=== PATIENT | female | born 1985 | race Caucasian/White ===

== ENCOUNTER 2019-06-11 18:44 | Inpatient (IN) | payer MEDICAID ==
[~2019-06-11] VITALS: Ht 165.1 cm; Wt 70.3 kg
--- NOTE | 2019-06-11 18:44 | NUR ---
Patient BIBA BLS accompanied by [place] [employer], transferred to bed 5. RN evaluating patient at bedside.
[2019-06-11 18:53] VITALS: BP 110/46
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
--- NOTE | 2019-06-11 19:09 | NUR ---
HOLD PROVIDED BY MICHAEL SPARKS, HOLD ON CHART
--- NOTE | 2019-06-11 19:18 | NUR ---
RECEIVED REPORT FROM PORFIRIO WARNER. TRANSFER OF CARE AT THIS TIME. PT SITTING QUIETLY IN BED 05 WITH SITTER AT BEDSIDE. PT IS TEARFUL, CALM, COOPERATIVE. SI PRECAUTIONS IMPLEMENTED.
--- NOTE | 2019-06-11 19:19 | NUR ---
DR. PASQUALE MEREDITH AT BEDSIDE.
--- NOTE | 2019-06-11 19:32 | NUR ---
REPORT GIVEN TO PORFIRIO VARGAS FOR CONTINUITY OF CARE
[2019-06-11] MEDS ORDERED: NACL 0.9% 1,000 ML IV ONE (19:35)
[2019-06-11] MEDS ORDERED: METOCLOPRAMIDE 10 MG/2 ML INJ VIAL IVP ONE (19:35)
--- NOTE | 2019-06-11 19:55 | NUR ---
MEDICATED WITH 10 MG IVP REGLAN FOR NAUSEA/VOMITING. WILL REASSESS.
--- NOTE | 2019-06-11 20:15 | NUR ---
REPORTS RELIEF FROM NAUSEA. REGLAN EFFECTIVE.
--- NOTE | 2019-06-11 20:30 | NUR ---
RESTING QUIETLY IN BED WITH EYES CLOSED. EASILY AROUSABLE TO VERBAL STIMULI. REPORTS RELIEF FROM NAUSEA. DENIES PAIN/DISCOMFORT AT THIS TIME.
[2019-06-11 20:49] LABS: BASOPHILS # (AUTO) 0.4 K/uL (0.00-0.22); BASOPHILS % (AUTO) 2.5 % (0.0-2.0); EOSINOPHILS # (AUTO) 0.1 K/uL (0-0.4); EOSINOPHILS % (AUTO) 0.6 % (0.0-4.0); HEMATOCRIT 42.7 % (36-48); HEMOGLOBIN 14.1 g/dL (12.0-16.0); LYMPHOCYTES # (AUTO) 1.7 K/uL (2.5-16.5); LYMPHOCYTES % (AUTO) 11.4 % (20.5-51.1); MEAN CORPUSCULAR HEMOGLOBIN 30 pg (27-31); MEAN CORPUSCULAR HGB CONC 33 g/dL (33-37); MEAN CORPUSCULAR VOLUME 90.6 fL (80-94); MONOCYTES # (AUTO) 0.7 K/uL (0.8-1.0); MONOCYTES % (AUTO) 5.2 % (1.7-9.3); NEUTROPHILS # (AUTO) 11.6 K/uL (1.8-7.7); NEUTROPHILS % (AUTO) 80.3 % (42.2-75.2); PLATELET COUNT (AUTO) 301 K/uL (140-450); RED BLOOD CELL COUNT(AUTO) 4.71 MIL/uL (4.20-5.40); RED CELL DISTRIBUTION WIDTH 13.2 % (11.6-13.7); WHITE BLOOD COUNT (AUTO) 14.4 K/uL (4.8-10.8)
--- NOTE | 2019-06-11 21:00 | NUR ---
URINE COLLECTED AND SENT TO LAB.
[2019-06-11 21:14] LABS: ALBUMIN 3.7 g/dL (3.4-5.0); ANION GAP 20.3 (8-16); ASPARTATE AMINOTRANSFERASE 14 U/L (15-37); CHLORIDE 103 mmol/L (98-107); CREATININE 0.6 mg/dL (0.6-1.3); GFR ARICAN-AMERICAN 148 mL/min (>90); GLUCOSE 71 mg/dL (74-106); POTASSIUM 3.3 mmol/L (3.5-5.1); SODIUM SERUM 140 mmol/L (136-145); TOTAL BILIRUBIN 0.6 mg/dL (0.0-1.0); UREA NITROGEN, BLOOD 12 mg/dL (7-18)
[2019-06-11 21:15] LABS: SALICYLATE < 2.8 mg/dL (2.8-20.0)
[2019-06-11 21:16] LABS: ACETAMINOPHEN < 0.5 ug/ml (10-30)
[2019-06-11] MEDS ORDERED: POTASSIUM CHLORIDE 10 MEQ TABER PO ONE (21:20)
[2019-06-11 21:43] LABS: APPEARANCE,URINE CLEAR (CLEAR); BILIRUBIN,URINE 1+ (NEGATIVE); BLOOD, URINE NEGATIVE (NEGATIVE); COLOR,URINE YELLOW (YELLOW); LEUKOCYTE ESTERASE ,URINE NEGATIVE (NEGATIVE); NITRITE, URINE NEGATIVE (NEGATIVE); UGLUCOSE NEGATIVE (NEGATIVE)
[2019-06-11 22:10] LABS: BARBITURATE, URINE NEG. ng/ml (NEG <=200); BENZODIAZEPINE, URINE NEG. ng/mL (NEG <=200); CANNABINOID, URINE POS. ng/mL (NEG <=50); COCAINE, URINE NEG. ng/mL (NEG <=300); OPIATE, URINE NEG. ng/mL (NEG <=2000); PHENCYCLIDINE SCREEN,URINE NEG. ng/mL (NEG <=25)
--- NOTE | 2019-06-11 23:30 | NUR ---
PT RESTING QUIETLY IN BED WITH EYES OPEN. CALM, COOPERATIVE. DENIES PAIN/DISCOMFORT AT THIS TIME. SITTER SITTING AT BEDSIDE. SI PRECAUTIONS IMPLEMENTED.
--- NOTE | 2019-06-11 23:32 | NUR ---
Received intake paperwork from [facility]. Intake paperwork was sent to the following faciltiies. [facility]/ [facility]/ [facility]/ [facility]/ [facility] Will keep facility informed of any updated information of bed placement
--- NOTE | 2019-06-12 00:32 | NUR ---
PATIENT GIVEN SANDWICH. SITTING UP IN BED. EMT RANDALL SITTING AT BEDSIDE.
--- NOTE | 2019-06-12 01:00 | NUR ---
RESTING WITH EYES CLOSED, LAYING ON SIDE, BREATHING DEEPLY. RESPIRATIONS EVEN, UNLABORED. AROUSABLE TO VERBAL STIMULI. DENIES PAIN/DISCOMFORT. SITTER SITTING AT BEDSIDE. SI PRECAUTIONS IMPLEMENTED.
[2019-06-12] MEDS ORDERED: DOCUSATE SODIUM 100 MG GELCAP PO PRN (02:00)
[2019-06-12] MEDS ORDERED: ONDANSETRON 4 MG/2 ML VIAL IM/IVP PRN (02:00)
[2019-06-12] MEDS ORDERED: MORPHINE SULFATE 2 MG/ML SYR IVP PRN (02:00)
[2019-06-12] MEDS ORDERED: ACETAMINOPHEN 325 MG TAB PO PRN (02:00)
--- NOTE | 2019-06-12 02:38 | NUR ---
Patient will be admitted to care of Dr. Arias. Admited to TELE. Will go to room 109A. Belongings list completed. Report to PORFIRIO Collins.
[2019-06-12 02:55] LABS: PROTHROMBIN TIME 9.5 secs (10.8-13.4)
[2019-06-12 03:01] LABS: CHOL/HDL RATIO 3.8 (1-4.5); MAGNESIUM 1.7 mg/dL (1.8-2.4); PHOSPHORUS 2.6 mg/dL (2.5-4.9); THYROID STIMULATING HORMONE 3.24 uIU/mL (0.34-3.74)
--- NOTE | 2019-06-12 03:15 | NUR ---
PT WAS BROUGHT UP BY [facility] ESCORTED BY ER NURSE WHO GAVE REPORT AT BEDSIDE. PT IS AOX4 WITH SKIN INTACT AND AMBULATORY. SHE HAS AN IV SITE ON RIGHT AC 20G WHICH IS INTACT AND ASYMPTOMATIC. . PT IS ON LOW BED WITH 1:1 SITTER AT BEDSIDE.
[2019-06-12] MEDS ORDERED: DEXTROSE 50% 50 ML SYR IVP PRN (03:20)
[2019-06-12] MEDS ORDERED: INSULIN LISPRO SLIDING SCALE 100 UNITS/ML VIAL SUBQ PRN (03:20)
[2019-06-12] MEDS ORDERED: ALBUTEROL SULFATE/IPRATROPIU 3 ML SOL IH PRN (03:40)
[2019-06-12] MEDS: NACL 0.9% 1,000 ML IV SCH ×2 (03:54→14:25)
[2019-06-12] MEDS ORDERED: MAGNESIUM OXIDE 400 MG TAB PO SCH (04:00)
[2019-06-12] MEDS: METOCLOPRAMIDE 10 MG/2 ML INJ VIAL IVP PRN ×4 (04:00→21:24)
--- NOTE | 2019-06-12 04:00 | NUR ---
PT IN BED RESTING AND CALM IV SITE INTACT AND ASYMPTOMATIC RUNNING NS AT 60MLS/HR ORDERED. MRSA SWAB DONE AND SENT TO LAB. ADMISSION QUESTIONS DONE AT BEDSIDE, PT ALSO ORDERED MAG OXIDE AND IS REQUESTING SOMETHING FOR NAUSEA, PT GIVEN IVP REGLAN 5MG ORDERED. V/S FOLLOWS: T 97.5 P 80 R 18 B/P 110/60 02 100% ON ROOM AIR. 1 :1 SITTER AT BEDSIDE.
--- NOTE | 2019-06-12 05:00 | NUR ---
LEFT MESSAGE WITH POINT OF CONTACT BRYAN RANGEL PRE PT REQUEST SO THAT HE IS AWARE THAT SHE IS HERE..
[2019-06-12 05:36] VITALS: BP 110/60
[2019-06-12 06:54] LABS: ANION GAP 16.6 (8-16); CARBON DIOXIDE 21.2 mmol/L (21-32); CREATININE 0.6 mg/dL (0.6-1.3); POTASSIUM 3.8 mmol/L (3.5-5.1)
[2019-06-12 06:57] LABS: MAGNESIUM 1.9 mg/dL (1.8-2.4); PHOSPHORUS 3.9 mg/dL (2.5-4.9)
--- NOTE | 2019-06-12 07:22 | NUR ---
RECEIVED BEDSIDE REPORT FROM PM RN PT AWAKE IN BED ALL SAFETY MEASURES ARE IN PLACE. ROOM INSPECTION COMPLETE REMOVED ALL CONTRABAND. BREAK AWAY CURTAINS ARE IN PLACE. IVF INFUSING IV SITE PATENT AND SHOWS NO SIGNS OF INFLAMMATION OF INFILTRATION. WILL CONTINUE TO MONITOR.
[2019-06-12] MEDS ORDERED: BLOOD GLUCOSE MONITORING 1 DEV DEV FS SCH (07:30)
[2019-06-12 07:59] LABS: BASOPHILS # (AUTO) 0.1 K/uL (0.00-0.22); BASOPHILS % (AUTO) 0.5 % (0.0-2.0); EOSINOPHILS # (AUTO) 0.2 K/uL (0-0.4); EOSINOPHILS % (AUTO) 1.5 % (0.0-4.0); HEMOGLOBIN 13.2 g/dL (12.0-16.0); LYMPHOCYTES # (AUTO) 3.2 K/uL (2.5-16.5); LYMPHOCYTES % (AUTO) 23.5 % (20.5-51.1); MEAN CORPUSCULAR HEMOGLOBIN 30 pg (27-31); MEAN CORPUSCULAR HGB CONC 33 g/dL (33-37); MEAN CORPUSCULAR VOLUME 90.5 fL (80-94); MONOCYTES # (AUTO) 1.1 K/uL (0.8-1.0); MONOCYTES % (AUTO) 7.9 % (1.7-9.3); NEUTROPHILS # (AUTO) 9.1 K/uL (1.8-7.7); NEUTROPHILS % (AUTO) 66.6 % (42.2-75.2); PLATELET COUNT (AUTO) 261 K/uL (140-450); RED BLOOD CELL COUNT(AUTO) 4.43 MIL/uL (4.20-5.40); WHITE BLOOD COUNT (AUTO) 13.6 K/uL (4.8-10.8)
--- NOTE | 2019-06-12 08:08 | NUR ---
PRN REGLAN ADMINISTERED PT COMPLAINS OF NAUSEA.
--- NOTE | 2019-06-12 08:32 | NUR ---
SIGHT MOUNTER AT PT BEDSIDE.
--- NOTE | 2019-06-12 08:36 | NUR ---
CALLED [facility] [phone] THEY STATED THEY ARE UNABLE TO HOLD THE BED FOR THE PATIENT DUE TO THE FACT THEY ARE A [facility]ISIS C[facility] AND ARE UNABLE TO HOLD BEDS FOR PATIENTS LONGER THEN 24 HOURS AND THAT SHE HAS UNTIL 10 AM 06/12/2019 TO RECEIVE HER BED
[2019-06-12 08:40] VITALS: BP 116/64
--- NOTE | 2019-06-12 08:40 | NUR ---
PT HAS BEEN SCREENED AND CATEGORIZED HIGH NUTRITION RISK. PT WILL BE SEEN WITHIN 1-2 DAYS OF ADMISSION. 06/12/19-06/13/[address]
--- NOTE | 2019-06-12 09:23 | NUR ---
PT RESTING COMFORTABLY IN BED. 1:1 SITTER AT BEDSIDE. ALL SAFETY MEASURES ARE IN PLACE. PT ON CONTINUOS TELE MONITORING WILL CONTINUE TO MONITOR.
[2019-06-12] MEDS: MULTIVIT/MIN/CA/FE/FA 1 TAB PO SCH (09:54)
--- NOTE | 2019-06-12 11:34 | NUR ---
PT RESTING COMFORTABLY IN BED. PT ON CONTINUOS TELE MONITORING. 1:1 SITTER AT BEDSIDE. ALL SAFETY MEASURES ARE IN PLACE WILL CONTINUE TO MONITOR.
[2019-06-12 12:12] VITALS: BP 111/66
[2019-06-12 13:59] LABS: BASOPHILS # (AUTO) 0.1 K/uL (0.00-0.22); BASOPHILS % (AUTO) 0.7 % (0.0-2.0); EOSINOPHILS # (AUTO) 0.1 K/uL (0-0.4); EOSINOPHILS % (AUTO) 1.2 % (0.0-4.0); HEMATOCRIT 37.6 % (36-48); HEMOGLOBIN 12.5 g/dL (12.0-16.0); LYMPHOCYTES # (AUTO) 2.2 K/uL (2.5-16.5); MEAN CORPUSCULAR HEMOGLOBIN 30 pg (27-31); MEAN CORPUSCULAR HGB CONC 33 g/dL (33-37); MEAN CORPUSCULAR VOLUME 90.5 fL (80-94); MONOCYTES # (AUTO) 0.7 K/uL (0.8-1.0); MONOCYTES % (AUTO) 7.5 % (1.7-9.3); NEUTROPHILS # (AUTO) 6.6 K/uL (1.8-7.7); NEUTROPHILS % (AUTO) 67.6 % (42.2-75.2); PLATELET COUNT (AUTO) 252 K/uL (140-450); RED BLOOD CELL COUNT(AUTO) 4.15 MIL/uL (4.20-5.40); RED CELL DISTRIBUTION WIDTH 12.8 % (11.6-13.7); WHITE BLOOD COUNT (AUTO) 9.7 K/uL (4.8-10.8)
[2019-06-12 14:07] LABS: ANION GAP 13.3 (8-16); CARBON DIOXIDE 23.5 mmol/L (21-32); CREATININE 0.5 mg/dL (0.6-1.3); POTASSIUM 3.8 mmol/L (3.5-5.1)
--- NOTE | 2019-06-12 14:19 | NUR ---
SPOKE WITH DR. DENSON ON THE PHONE TO VERIFY IF HE WILL BE MAKING HIS ROUNDS TODAY. PT HAS SOME QUESTIONS AND CONCERNS ABOUT HER TREATMENT. HE STATED THAT BECAUSE IT WAS RECOMMENDED SHE BE PLACED ON A 5150 THAT SHE MUST BE OBSERVED FOR 24 HOURS BEFORE ANY DECISIONS ARE MADE ABOUT HER PLAN OF CARE. SPOKE WITH ADRIANNA PUENTE ABOUT PT STATED SHE FEELS TRAPPED HE STATED IT WAS OK TO ALLOW THE PATIENT TO HAVE HER PHONE TO BE ABLE TO GET INTO CONTACT WITH PEOPLE
--- NOTE | 2019-06-12 15:34 | NUR ---
FREQUENT ROUNDING ON PT PT APPEARS STABLE AND IN NO APPARENT DISTRESS ALL SAFETY MEASURES ARE IN PLACE
[2019-06-12] MEDS: ONDANSETRON 4 MG ODT SL PRN (15:49)
[2019-06-12 16:05] VITALS: BP 112/64
--- NOTE | 2019-06-12 17:34 | NUR ---
FREQUENT ROUNDING ON PT PT APPEARS STABLE AND IN NO APPARENT DISTRESS. ALL SAFETY MEASURES ARE IN PLACE 5150 SITTER AT BEDSIDE
--- NOTE | 2019-06-12 19:22 | NUR ---
ENDORSED PT TO PM RN PT AWAKE IN BED PT WANTING IV REMOVED INFORMED PT THAT IT IS IMPORTANT THAT SHE KEEP HER IV IN TO KEEP HER HYDRATED. INFORMED DR. MENDEZ THAT PATIENT WANTS HER IV REMOVED HE STATED WE SHOULD TRY TO KEEP IT IN FOR FLUIDS. INFORMED PM RN ODIN
--- NOTE | 2019-06-12 19:25 | NUR ---
RECEIVED PT ON BED TALKING ON HER CELLPHONE, NO SIGNS OF PAIN OR SOB, IVF OFF AT THIS TIME, WILL COME BACK LATER, SITTER AT BEDSIDE.
--- NOTE | 2019-06-12 19:40 | NUR ---
WENT BACK TO PT'S BEDSIDE, SEEN TELE MONITOR OFF ON SIDE OF BED, PT REQUESTING IV LINE TO BE TAKEN OUT, REFUSED VITAL SIGNS TAKING, RISK AND BENEFITS EXPLAINED, PT REFUSING AND STATED I DON'T NEED THAT, I NEED THE PSYCH DOCTOR TO EVALUATE ME, SHE SAID SHE'S NOT SUICIDAL AND STAYING IN THIS ROOM MAKES HER MORE DEPRESSED AND ANXIOUS, DR MENDEZ MADE AWARE.
--- NOTE | 2019-06-12 20:20 | NUR ---
DR MENDEZ TALKED TO PT, STATED OK TO BRING READING MATERIALS TO PT, SEEN PT CRYING BUT CALM AND COOPERATIVE, PT AMENABLE TO IVF AT THIS TIME, NS AT 50ML/H RESUMED, SECURITY PAGED TO BRING PT'S OWN BOOKS FROM HER BELONGINGS, MAGAZINES PROVIDED TO PT, AWAITING DR VILLAREAL FOR PSYCH EVALUATION, SITTER AT BEDSIDE.
--- NOTE | 2019-06-12 21:24 | NUR ---
PT COMPLAINING OF NAUSEA BUT NO VOMITING NOTED, REGLAN IVP GIVEN, PT REQUEST A CHANGE OF GOWN, UNDERWEAR, AND DEODORANT, PROVIDED PER REQUEST, SITTER AT BEDSIDE FOR CLOSE MONITORING.
--- NOTE | 2019-06-12 22:43 | NUR ---
DR VILLAREAL NOT HERE YET, PAGED EXCHANGE AND SAID DR OTERO IS CHIEF ACCOUNTANT, INQUIRE IF THERE IS A WAY TO KNOW IF DR VILLAREAL WILL COME, STATED NO, CHARGE NURSE PHIL MADE AWARE, PT SLEEPING AT THIS TIME, SITTER AT BEDSIDE.
--- NOTE | 2019-06-13 00:35 | NUR ---
PT AWAKE INQUIRING IF DR VILLAREAL HAS MADE HIS ROUNDS YET, MADE AWARE THAT DR VILLAREAL HASN'T COME YET, PT GOT UPSET, DR MENDEZ MADE AWARE AND HE CAME AND TALKED TO PT.
[2019-06-13] MEDS: ONDANSETRON 4 MG ODT SL PRN (00:52)
--- NOTE | 2019-06-13 00:52 | NUR ---
PT COMPLAINING OF NAUSEA BUT NO VOMITING NOTED, MEDICATED WITH ZOFRAN PO, TOLERATED WELL, VITAL SIGNS STABLE, DENIES ANY PAIN, MONITORED CLOSELY, SITTER AT BEDSIDE.
[2019-06-13 01:00] VITALS: BP 127/78
--- NOTE | 2019-06-13 04:20 | NUR ---
PT SLEEPING, VISIBLE CHEST RISE AND FALL, NO DISTRESS NOTED, IVF INFUSING WELL, SITTER AT BEDSIDE.
[2019-06-13] MEDS: NACL 0.9% 1,000 ML IV SCH (04:48)
--- NOTE | 2019-06-13 05:18 | NUR ---
Ther are no vacancy at any of the facilities [facility]- [facility]- Shannon [facility] charge nurse made aware.
--- NOTE | 2019-06-13 06:38 | NUR ---
PT AWAKENED BY PHLEB, AM LABS DRAWN, PT DENIES ANY NAUSEA AT THIS TIME, IVF INFUSING WELL, SITTER AT BEDSIDE, MONITORED CLOSELY.
--- NOTE | 2019-06-13 07:15 | NUR ---
DR VILLAREAL CURRENTLY TALKING TO PT AT THIS TIME, REPORT GIVEN TO PORFIRIO SINGH FOR CONTINUITY OF CARE.
[2019-06-13 07:42] LABS: BASOPHILS # (AUTO) 0.1 K/uL (0.00-0.22); BASOPHILS % (AUTO) 0.7 % (0.0-2.0); EOSINOPHILS # (AUTO) 0.1 K/uL (0-0.4); EOSINOPHILS % (AUTO) 1.1 % (0.0-4.0); HEMATOCRIT 36.5 % (36-48); HEMOGLOBIN 12.2 g/dL (12.0-16.0); LYMPHOCYTES # (AUTO) 2.5 K/uL (2.5-16.5); LYMPHOCYTES % (AUTO) 22.3 % (20.5-51.1); MEAN CORPUSCULAR HEMOGLOBIN 30 pg (27-31); MEAN CORPUSCULAR HGB CONC 34 g/dL (33-37); MEAN CORPUSCULAR VOLUME 89.8 fL (80-94); MONOCYTES # (AUTO) 0.7 K/uL (0.8-1.0); MONOCYTES % (AUTO) 6.5 % (1.7-9.3); NEUTROPHILS # (AUTO) 7.7 K/uL (1.8-7.7); NEUTROPHILS % (AUTO) 69.4 % (42.2-75.2); PLATELET COUNT (AUTO) 255 K/uL (140-450); RED BLOOD CELL COUNT(AUTO) 4.07 MIL/uL (4.20-5.40); RED CELL DISTRIBUTION WIDTH 12.8 % (11.6-13.7); WHITE BLOOD COUNT (AUTO) 11.1 K/uL (4.8-10.8)
--- NOTE | 2019-06-13 07:51 | NUR ---
received bedside report from mine shifter nurse. pt awake in bed, appears stable, iv fluid infusing, iv site patent. Dr. Ruffin at bedside. 5150 sitter at bedside. all safety measures are in place. Will continue to monitor.
[2019-06-13 08:00] VITALS: BP 112/74
--- NOTE | 2019-06-13 08:15 | NUR ---
SCHEDULED MEDS GIVEN. PT REFUSED TO TAKE THE VITAMINS BECAUSE SHE SAID ITS TOO BIG TO SWALLOW. SHE INSISTED ON JUST TAKING THE ONE SHE GOT AT HOME INSTEAD ONCE DISCHARGED. PT APPEARS STABLE, NO SIGNS OF DISTRESS. WILL CONTINUE MONITORING
[2019-06-13 08:54] LABS: CARBON DIOXIDE 21.6 mmol/L (21-32); CREATININE 0.6 mg/dL (0.6-1.3); POTASSIUM 3.6 mmol/L (3.5-5.1)
[2019-06-13] MEDS: MULTIVIT/MIN/CA/FE/FA 1 TAB PO SCH (08:59)
[2019-06-13] MEDS ORDERED: FAMOTIDINE 20 MG TAB PO SCH (09:00)
[2019-06-13 09:04] LABS: MAGNESIUM 1.8 mg/dL (1.8-2.4); PHOSPHORUS 3.8 mg/dL (2.5-4.9)
--- NOTE | 2019-06-13 09:30 | NUR ---
FREQUENT ROUNDING ON PT PT IN BED PT APPEARS STABLE AND IN NO APPARENT DISTRESS. ALL SAFETY MEASURES ARE IN PLACE. SITTER AT BEDSIDE. SPOKE WITH SHERON NEGATIVE DEVELOPER ABOUT HELPING PT FINDING PLACEMENT. PT VERBALIZED TO SHERON SHE DOESNT WANT HELP SHE WILL BE GOING BACK TO HER MOMS HOUSE FOR NOW
--- NOTE | 2019-06-13 09:58 | NUR ---
Electro Plater Note: SW met with patient at bedside to complete assessment. Patient refused to speak to SW. SW will follow up as needed.
[2019-06-13] MEDS ORDERED: FAMO20TA13 PO (10:54)
[2019-06-13] MEDS ORDERED: PRETAB PO (10:54)
[2019-06-13] MEDS ORDERED: ONDA4ODT2 SL (10:57)
--- NOTE | 2019-06-13 11:15 | NUR ---
FREQUENT ROUNDING DONE. PT IS SITTING ON HER BED. PT APPEARS STABLE. NO SIGNS OF DISTRESS. WILL CONTINUE MONITORING.
[2019-06-13 11:25] VITALS: BP 112/74
--- NOTE | 2019-06-13 12:00 | NUR ---
PATIENT IS FOR D/C. D/C INSTRUCTIONS AND TEACHINGS GIVEN TO PATIENT. PT VERBALIZED UNDERSTANDING AND SIGNED D/C PAPERWORK. TOOK OUT IV, INTACT CANNULA. REMOVED ID BANDS. PERSONAL BELONGINGS WERE GIVEN BACK TO THE PT.
== END 2019-06-13 12:15 | disposition home or self-care (01) | DRG 566 ==
LOC: MED 18:44 → MTU 06-12 02:05
PROVIDERS: ADMIT General Practice; ATTEND General Practice
DX: O99.341 Other mental disorders complicating pregnancy, first trimester (principal); E83.42 Hypomagnesemia; R45.851 Suicidal ideations; O98.511 Other viral diseases complicating pregnancy, first trimester; O99.321 Drug use complicating pregnancy, first trimester; O99.89 Other specified diseases and conditions complicating pregnancy, childbirth and the puerperium; O26.891 Other specified pregnancy related conditions, first trimester; A08.4 Viral intestinal infection, unspecified; O99.331 Smoking (tobacco) complicating pregnancy, first trimester; O21.0 Mild hyperemesis gravidarum; E87.6 Hypokalemia; F12.10 Cannabis abuse, uncomplicated; F32.9 Major depressive disorder, single episode, unspecified; J45.909 Unspecified asthma, uncomplicated; F17.200 Nicotine dependence, unspecified, uncomplicated; E86.0 Dehydration; F41.1 Generalized anxiety disorder; F43.10 Post-traumatic stress disorder, unspecified; M06.9 Rheumatoid arthritis, unspecified; R45.850 Homicidal ideations; Z3A.08 8 weeks gestation of pregnancy; Z86.73 Personal history of transient ischemic attack (TIA), and cerebral infarction without residual deficits
CPT/HCPCS: 36415; 76801; 80048; 80053; 80305; 81003; 82272; 83036; 83690; 83735; 84100; 84134; 84443; 84702; 85025; 85610; 85730; 87040; 87081; 87086; 89055; 96360; 96374; 99285; G0480; G0482; J2765; J7030; Q0092; Q0162